=== PATIENT | female | born 1950 | race Caucasian/White ===

== ENCOUNTER 2016-11-12 06:04 | Day surgery (SDC) | payer MEDICARE, BC ==
--- NOTE | ~2016-11-12 | EGD ---
EGD REPORT [facility] [address] [address] NAME: NOA LUGO : [birth year] STATUS : REG [facility] [place] PAT#: [id number] AGE: 66 ADM/REG DATE : 11/12/16 MR#: [id number] REPORT SERV DATE: 11/12/16 DICTATED BY: LATRICIA IZQUIERDO DATE: 11/12/16 REPORT STATUS : Draft TRANSCRIBED BY: [facility] DATE: 11/12/16 Endoscopy Center Patient Name: Noa Lugo Date of : 1950 Attending MD: LATRICIA IZQUIERDO MD Procedure Date No Time: 11/12/2016 Procedure: Colonoscopy Indications: Abdominal pain in the left lower quadrant, Abdominal pain in the right lower quadrant, Change in bowel habits Referring MD: DANNY ANN MD Medicines: as per anesthesia Complications: No immediate complications. Procedure: Pre-Anesthesia Assessment: - ASA Grade Assessment: III - A patient with severe systemic disease. After I obtained informed consent, the scope was passed under direct vision. Throughout the procedure, the patient's blood pressure, pulse, and oxygen saturations were monitored continuously. The [facility] [id number] was introduced through the anus and advanced to the cecum, identified by appendiceal orifice and ileocecal valve. The colonoscopy was performed without difficulty. The patient tolerated the procedure. The quality of the bowel preparation was adequate to identify polyps. Findings: The perianal and digital rectal examinations were normal. The colon (entire examined portion) appeared normal. Impression: - The entire examined colon is normal. Recommendation: - Repeat colonoscopy in 10 years for surveillance. Procedure Code(s): --- Professional --- 03101, Colonoscopy, flexible, proximal to splenic flexure; diagnostic, with or without collection of specimen(s) by brushing or washing, with or without colon decompression (separate procedure) Diagnosis Code(s): --- Professional --- R10.32, Left lower quadrant pain R10.31, Right lower quadrant pain R19.4, Change in bowel habit EGD REPORT [facility] [address] [id number] NAME: NOA LUGO : [birth year] STATUS : REG [facility] [place] PAT#: [id number] AGE: 66 ADM/REG DATE : 11/12/16 MR#: [id number] REPORT SERV DATE: 11/12/16 DICTATED BY: LATRICIA IZQUIERDO. DATE: 11/12/16 REPORT STATUS : Draft TRANSCRIBED BY: [employer] DATE: 11/12/16 CPT copyright 2013 [employer]. All rights reserved. The codes documented in this report are preliminary and upon remote coders review may be revised to meet current compliance requirements. LATRICIA IZQUIERDO MD 11/12/2016 8:39 AM This report has been signed electronically. Number of Addenda: 0 Note Initiated On: 11/12/2016 8:19 AM Scope Withdrawal Time 0 hours 7 minutes 23 seconds [address] [id number]
--- NOTE | ~2016-11-12 | EGD ---
EGD REPORT [facility] [address] [address] NAME: NOA LUGO : [birth year] STATUS : REG [facility] [place] PAT#: [id number] AGE: 66 ADM/REG DATE : 11/12/16 MR#: [id number] REPORT SERV DATE: 11/12/16 DICTATED BY: LATRICIA IZQUIERDO DATE: 11/12/16 REPORT STATUS : Draft [facility]ANSCRIBED BY: [facility] DATE: 11/12/16 Endoscopy Center Patient Name: Noa Lugo Date of : 1950 Attending MD: LATRICIA IZQUIERDO MD Procedure Date No Time: 11/12/2016 Procedure: Upper GI endoscopy Indications: Heartburn, Suspected esophageal reflux, Nausea Referring MD: DANNY ANN MD Medicines: as per anesthesia Complications: No immediate complications. Procedure: Pre-Anesthesia Assessment: - ASA Grade Assessment: III - A patient with severe systemic disease. After obtaining informed consent, the endoscope was passed under direct vision. Throughout the procedure, the patient's blood pressure, pulse, and oxygen saturations were monitored continuously. The GIF [id number] [id number] was introduced through the mouth, and advanced to the third part of duodenum. The upper GI endoscopy was accomplished without difficulty. The patient tolerated the procedure. Findings: The examined esophagus was normal. Localized mild inflammation characterized by erythema was found in the gastric antrum. Biopsies were taken with a cold forceps for histology. The cardia and gastric fundus were normal on retroflexion. The examined duodenum was normal. Impression: - Normal esophagus. - Gastritis. Biopsied. - Normal examined duodenum. Recommendation: - Await pathology results. - Follow an antireflux regimen. - Continue present medications. Procedure Code(s): --- Professional --- 41935, Esophagogastroduodenoscopy, flexible, transoral; with biopsy, single or multiple Diagnosis Code(s): --- Professional --- K29.70, Gastritis, unspecified, without bleeding R12, Heartburn EGD REPORT [facility] [address] [address] NAME: NOA LUGO : [birth year] STATUS : REG [facility]#: [id number] AGE: 66 ADM/REG DATE : 11/12/16 MR#: [id number] REPORT SERV DATE: 11/12/16 DICTATED BY: LATRICIA IZQUIERDO. DATE: 11/12/16 REPORT STATUS : Draft TRANSCRIBED BY: [employer] DATE: 11/12/16 R11.0, Nausea CPT copyright 2013 [employer]. All rights reserved. The codes documented in this report are preliminary and upon data coder operator review may be revised to meet current compliance requirements. LATRICIA IZQUIERDO MD 11/12/2016 8:21 AM This report has been signed electronically. Number of Addenda: 0 Note Initiated On: 11/12/2016 7:58 AM Scope Withdrawal Time 0 hours 0 minutes 0 seconds [id number] [facility] [place] [id number]
[~2016-11-12 06:04] MED LIST: CELEXA40 MG PO; DULERA 200 MCG/13 GM INH; HYZAAR 100/25 T1 TAB PO; KLOR-CON M2020 MEQ PO; NEXIUM PO; PLAQ200B PO; RESTASIS OPH; WELL75 PO; ZOCOR20 PO; [UNRECOGNIZED DRUG - OTHER] PO; [UNRECOGNIZED DRUG - REMARK] INH
== END 2016-11-12 23:59 | disposition home or self-care (01) ==
LOC: DMU 06:04
PROVIDERS: Internal Medicine Gastroenterology
PROC: 0DJD8ZZ Inspection of Lower Intestinal Tract, Via Natural or Artificial Opening Endoscopic (ICD-10-PCS; principal; 2016-11-12 08:00)
PROC: 0DB68ZX Excision of Stomach, Via Natural or Artificial Opening Endoscopic, Diagnostic (ICD-10-PCS; 2016-11-12 08:00)
DX: K29.50 Unspecified chronic gastritis without bleeding (principal); I10 Essential (primary) hypertension; E78.00 Pure hypercholesterolemia, unspecified; J45.909 Unspecified asthma, uncomplicated; K21.9 Gastro-esophageal reflux disease without esophagitis; F41.9 Anxiety disorder, unspecified; F32.9 Major depressive disorder, single episode, unspecified; Z79.899 Other long term (current) drug therapy
CPT/HCPCS: 88305